=== PATIENT | female | born 1995 | race Hispanic/Latino ===

== ENCOUNTER 2017-11-24 00:19 | Emergency (ER) | payer OTHER ==
[2017-11-24 00:36] VITALS: TEMP 98.3
[2017-11-24] MEDS ORDERED: Sodium Chloride 0.9% 1,000 ML IV STA (01:17)
--- NOTE | 2017-11-24 01:56 | ED PDOC ---
HPI: Psych/Substance Abuse Time Seen by Provider: 11/24/17 00:47 Chief Complaint (Nursing): Alcohol Ingestion Chief Complaint (Provider): Alcohol Ingestion ED Caveat: Intoxicated History Per: Patient, EMS History/Exam Limitations: intoxication Additional Complaint(s): Patient is 22 y/o female who was brought to the ED by ambulance for public intoxication. Patient was found to be sitting outside and had alcohol on her breath. Patient denies any complaints at this time but has one episode of vomiting in the ED. Patient is poor historian and due to intoxication, unreliable. Past Medical History Reviewed: Historical Data, Nursing Documentation, Vital Signs Vital Signs: Last Vital Signs Temp 98.3 F 11/24/17 00:33 Pulse 102 H 11/24/17 00:33 Resp 18 11/24/17 00:33 BP 135/74 11/24/17 00:33 Pulse Ox 99 11/24/17 00:33 - Medical History PMH: No Chronic Diseases - Surgical History Surgical History: No Surg Hx - Family History Family History: States: Unknown Family Hx - Allergies Allergies/Adverse Reactions: Allergies Allergy/AdvReac Type Severity Reaction Status Date / Time No Known Allergies Allergy Verified 11/24/17 00:32 Review of Systems Review Of Systems: ROS cannot be obtained secondary to pt's inabilty to answer questions. (intoxicated) Physical Exam - Reviewed Nursing Documentation Reviewed: Yes Vital Signs Reviewed: Yes - Physical Exam Appears: Positive for: Non-toxic, No Acute Distress Head Exam: Positive for: ATRAUMATIC, NORMOCEPHALIC Skin: Positive for: Normal Color, Warm, Dry Eye Exam: Positive for: EOMI, Normal appearance, PERRL Neck: Positive for: Normal, Painless ROM Cardiovascular/Chest: Positive for: Regular Rate, Rhythm. Negative for: Murmur Respiratory: Positive for: Normal Breath Sounds. Negative for: Respiratory Distress Gastrointestinal/Abdominal: Positive for: Normal Exam, Soft. Negative for: Tenderness Back: Positive for: Normal Inspection Extremity: Positive for: Normal ROM. Negative for: Pedal Edema, Deformity Neurologic/Psych: Positive for: Gait (unsteady), Other (slurred speech) - ECG O2 Sat by Pulse Oximetry: 99 (RA) Pulse Ox Interpretation: Normal - Progress Re-evaluation Time: 04:00 Condition: Re-examined, Improved Medical Decision Making Medical Decision Making: Time: 01:17 Impression: Alcohol intoxication Initial Plan: --IV fluids --Zofran --monitor for clinical sobriety Scribe Attestation: Documented by Sam Clements acting as a scribe for Becky Berkowitz MD. Provider Scribe Attestation: All medical record entries made by the Scribe were at my direction and personally dictated by me. I have reviewed the chart and agree that the record accurately reflects my personal performance of the history, physical exam, medical decision making, and the department course for this patient. I have also personally directed, reviewed, and agree with the discharge instructions and disposition. Disposition - Clinical Impression Clinical Impression: Alcohol abuse with intoxication - Patient ED Disposition Is Patient to be Admitted: Transfer of Care Doctor Will See Patient In The: Office Counseled Patient/Family Regarding: Studies Performed, Diagnosis, Need For Followup - Disposition Disposition: Routine/Home Disposition Time: 04:00 Condition: IMPROVED Additional Instructions: Follow up with your PCP in 2-3 days. Instructions: Alcohol Abuse and Alcoholism (DC)
[2017-11-24 05:06] VITALS: RESP 16
[2017-11-24 05:11] VITALS: BP 131/70; PULSE 77
[2017-11-25 14:57] VITALS: O2SAT 99
== END 2017-11-24 04:12 | disposition home or self-care (01) ==
LOC: H.ER 00:19
DX: F10.129 Alcohol abuse with intoxication, unspecified (principal); R11.10 Vomiting, unspecified
CPT/HCPCS: 80320; 81025; 96374; 99285; J2405; J7030